=== PATIENT | female | born 1940 ===

== ENCOUNTER → 2016-05-24 | Outpatient (REF) | payer OTHER ==
[2016-05-24 15:42] LABS: MEAN PLATELET VOLUME 10.4 FL (6.0-9.5); PLATELET COUNT 234 10^3uL (150-450); WHITE BLOOD COUNT 11.44 10^3uL (4.0-11.0)
[2016-05-24 15:53] LABS: MEAN CORPUSCULAR HEMOGLOBIN 32.4 PG (26.0-34.0); MEAN CORPUSCULAR HGB CONC 31.3 g/dL (31.0-37.0); MEAN CORPUSCULAR VOLUME 104 FL (80-100)
[2016-05-24 15:56] LABS: ALBUMIN 3.8 g/dL (3.4-5.0); ANION GAP 21.9 MEQ/L (3-15); TOTAL PROTEIN 6.1 g/dL (6.4-8.5)
[2016-05-24 15:59] LABS: ANISOCYTOSIS SLIGHT; BAND NEUTROPHILS % 1 % (0-6); EOSINOPHILS % 0 % (0-4); LYMPHOCYTES # 1.5 #; MONOCYTES # 0.8 #; MONOCYTES % 7 % (3-11); NUCLEATED RED BLOOD CELLS 1; RBC MORPH SEE REFERENCE (NORMAL); SEGMENTED NEUTROPHILS % 78 % (51-67); TOTAL CELLS COUNTED 100
== END ==
LOC: LAB 15:21
PROVIDERS: ATTEND Family Medicine
DX: N18.6 End stage renal disease (principal); I27.81 Cor pulmonale (chronic); I48.2 Chronic atrial fibrillation; H53.8 Other visual disturbances; I47.1 Supraventricular tachycardia
CPT/HCPCS: 80053; 80162; 85025; 85610

== ENCOUNTER → 2016-07-13 | Outpatient (REF) | payer OTHER | LOC: LAB 17:04 | PROVIDERS: ATTEND Family Medicine | DX: I48.2 Chronic atrial fibrillation (principal) | CPT/HCPCS: 80162 ==